=== PATIENT | male | born 1935 | race Caucasian/White ===

== ENCOUNTER → 2022-05-10 | Outpatient (CLI) | payer MEDICARE ==
--- NOTE | 2022-05-10 09:24 | P.PAINPG ---
PQRS Measure Charge Sheet Comment: HISTORY OF PRESENT ILLNESS: 87 yr old male with at side as a referral from Dr. Cheung sentence today with severe and chronic LBP secondary to spondylosis and facet arthropathy for evaluation. He states his lower back pain is currently at 6 out of 10 in intensity, dull, achy in the lower aspects of the lumbar spine and only provoked with lifting greater than 20 pounds. It is relieved with medications (Tylenol OTC, Voltaren gel), alternating ice and heat, physical therapy for which she is currently in, daily home stretching regimen, repositioning and rest. PMH: OA, HTN, Hyperlipidemia, Gout, GERD PSH: Denies SH: Negative x 3. and lives with spouse. FH: Non contributory All: See list Meds: See list REVIEW OF ORGAN SYSTEMS: CONSTITUTIONAL: No fevers or chills. No recent weight loss. HEENT: No visual acuity loss, eye pain, difficulties with hearing. No nosebleeds. No difficulty swallowing. RESPIRATORY: Denies any troubles with breathing or dyspnea on exertion. CARDIOVASCULAR: Denies any chest pain, palpitations, or recent heart attacks. GASTROINTESTINAL: Denies fatty food intolerance. Has change in bowel habits and gas bloat. GENITOURINARY: Denies any blood in urine. Has increased urinary frequency. NEUROLOGICAL: + numbness and tingling along the distal extremities. No seizure disorders or headaches. MUSCULOSKELETAL: + back pain SKIN: No skin cancer. No rash. PSYCHIATRIC: Denies current depression or suicidal thoughts. ENDOCRINE: Denies current thyroid disorders. Denies any blood sugar glucose intolerance. HEME/LYMPHATIC: Denies any lumps and bumps around the neck. History of deep venous thrombosis. ALLERGY/IMMUNOLOGY: No immunoglobulin therapy. No immune deficiencies. BREAST: Denies current breast lumps, pain or nipple discharge. Physical Examinations : Constitutional : Cooperative , not in acute distress . HEENT: Neck supple. No Lymphadenopathy. Normal thyroid size . Eyes no ptosis , no icterus, no photophobia . Hearing intact. Normal oropharynx. No Thrush. Respiratory : Chest clear to auscultations bilaterally. No wheezing. No rhonchi. Cardiovascular : Regular rate and rhythm , S1 / S2. No S3 . No S4. Gastrointestinal : Abdomen soft. No tenderness. Bowel sounds x 4. No organomegaly . Genitourinary : Deferred. Neurologic : Cranial nerve II to XII intact. No focal neurological deficits. Psychiatric : alert & oriented x 3. Matching mood & appropriate affect. Judgment & insight intact. Lymphatic No Lymphadenopathy. Musculoskeletal : Cervical Spine Motor strength in the deltoid and biceps: Normal right side. Normal Left side Motor strength biceps and the wrist extensors: Normal right side . Normal left side Motor strength in the triceps muscle: Normal right side. Normal left side Deep tendon reflexes: Normal at the biceps. Normal at Brachioradialis. Normal at triceps Cervical facet loading test: positive bilaterally Spurling test: positive bilaterally Neck distraction test: positive bilaterally Humberto sign: positive bilaterally Lumbar spine Motor strength lower extremities ,thigh and legs 5/5 Right side , 5/5 Left side Deep tendon reflexes : Normal Knee Jerk. Normal Ankle Jerk Vertebral body tenderness over L4, L5 Lumbar facet Loading Test: positive Right / positive Left Range of motion of the lumbar spine Flexion 30 degrees, extension 10 degrees Straight Leg Raise test: Left/ Right positive at degree Mikhail test: positive right / positive left. Severe tenderness over the Sacroiliac joint on the Right / Left sides Gaenslen test: positive bilaterally Seated flexion test: positive bilaterally. Sacral spine : Severe tenderness over the Sacroiliac joint: right side / left side Range of motion: Flexion of the lumbar spine <60 degrees Range of motion: Extension of the lumbar spine <20 degrees Gaenslen's Test positive Herb's Test positive Mikhail test: positive right side / left side Thigh Thrust Test Sacral Thrust Test Imaging: X ray of the lumbar spine from 04/15/22 reviewed Assessment/ Plan : Lumbar DDD Recommendation of MRI without contrast of the lumbar spine. Will follow up within 2-4 weeks for results and exploration of treatment options. Prescribing Naproxen 500mg BIDWM prn pain #60 w 1 refill. Risks, benefits of procedure discussed and patient verbalized understanding. Denies aspirin or anti- coagulant use or medical history of diabetes. All questions answered. I have spent greater than 50 minutes on patient care today. Dr Tinajero was available by phone for the evaluation of this patient. The time was used to review the medical records including relevant urine studies and Prescription history (MAPs), review of the available imaging, evaluation and examination of the patient, coordination of care with the medical staff and if applicable referring physicians, as well as creation of the medical record Controlled Substance Measures - Controlled Substance Measures Is patient prescribed a controlled substance at discharge?: No
[2022-05-10 10:25] VITALS: BP 147/71; PULSE 66; RESP 18; TEMP 98.4
== END ==
LOC: PNWHC3 08:32
PROVIDERS: ATTEND Specialist
DX: M51.36 Other intervertebral disc degeneration, lumbar region (principal); M48.061 Spinal stenosis, lumbar region without neurogenic claudication; M19.90 Unspecified osteoarthritis, unspecified site; E78.5 Hyperlipidemia, unspecified
CPT/HCPCS: 99211

== ENCOUNTER → 2022-05-16 | Outpatient (CLI) | payer MEDICARE ==
--- NOTE | 2022-05-16 11:44 | US ---
EXAMINATION TYPE: US axilla LT DATE OF EXAM: 05/16/2022 COMPARISON: NONE CLINICAL HISTORY: R22.2 LOCALIZED SWELLING, MASS AND LUMP, TRUNK. Visible palpable lump in left axill a. No recent covid vaccine. Area of concern at left axilla scanned. Multiple hypoechoic lesions seen. Largest measured, vascula r = 6.7 x 4.5 x 3.1 cm. Prominent hypervascular oval well-circumscribed hypoechoic solid masses in the left axilla. IMPRESSION: As above. Abnormal masses, suspected adenopathy. Neoplasm such as lymphoma is in the dif ferential. Further clinical workup and follow-up advised. Imaging guided biopsy can BE performed if n ecessary after clinical workup.
== END | disposition home or self-care (01) ==
LOC: RADUSWWP 11:12
PROVIDERS: ATTEND Internal Medicine Critical Care Medicine
DX: R22.2 Localized swelling, mass and lump, trunk (principal)

== ENCOUNTER → 2022-05-18 | Outpatient (CLI) | payer MEDICARE ==
[2022-05-18 09:53] LABS: Basophils % (A) 1 %; Eosinophils # (A) 0.1 k/uL (0-0.7); Eosinophils % (A) 2 %; HCT 42.7 % (39.0-53.0); HGB 14.1 gm/dL (13.0-17.5); Lymphocytes # (A) 1.1 k/uL (1.0-4.8); Lymphocytes % (A) 18 %; MCH 32.1 pg (25.0-35.0); MCHC 32.9 g/dL (31.0-37.0); MCV 97.7 fL (80.0-100.0); Mean Platelet Volume 6.5; Monocytes # (A) 0.3 k/uL (0-1.0); Monocytes % (A) 6 %; Neutrophils # (A) 4.3 k/uL (1.3-7.7); Neutrophils % (A) 72 %; Platelet Count 333 k/uL (150-450); RBC 4.37 m/uL (4.30-5.90); RDW 12.4 % (11.5-15.5)
[2022-05-18 10:01] LABS: ALT 15 U/L (4-49); AST 32 U/L (17-59); African American GFR (CKD) >90 (>60 ml/min/1.73 sqM); Albumin/Globulin Ratio 1.3; Alkaline Phosphatase 120 U/L (38-126); Anion Gap 6 mmol/L; Blood Urea Nitrogen 9 mg/dL (9-20); Calcium 9.1 mg/dL (8.4-10.2); Carbon Dioxide 28 mmol/L (22-30); Chloride 100 mmol/L (98-107); Creatine Kinase 161 U/L (55-170); Globulin 3.1 g/dL; Glucose 99 mg/dL (74-99); Non-African American GFR(CKD) 87 (>60 ml/min/1.73 sqM); Potassium 4.7 mmol/L (3.5-5.1); Sodium 134 mmol/L (137-145); Total Bilirubin 0.8 mg/dL (0.2-1.3); Total Protein 7.1 g/dL (6.3-8.2); Uric Acid 4.6 mg/dL (3.5-8.5)
[2022-05-18 11:05] LABS: Erythrocyte Sedimentation Rate 15 mm/hr (0-15)
--- NOTE | 2022-05-18 13:26 | CT ---
EXAMINATION TYPE: CT ChestAbdPelvis w con DATE OF EXAM: 05/18/2022 COMPARISON: None HISTORY: 87-year-old male R22.2, trunk mass, left side chest mass TECHNIQUE: Contiguous axial scanning of the chest, abdomen, pelvis performed with IV Contrast, patien t injected with 100 mL of Isovue 300. Delayed images through the kidneys were obtained. Coronal/sagit dagmar reconstructions performed. CT DLP: 1274 mGycm Automated exposure control for dose reduction was used. FINDINGS: CHEST: The heart is upper limits of normal in size without pericardial effusion. Three-vessel coronary arter y calcifications are present in remarkable for coronary artery disease. Mild aneurysm ascending aorta 4.0 cm. Conventional arch vessel anatomy. Mild aneurysm upper descendin g thoracic aorta 3.4 cm. Also, large caliber to the main right and left pulmonary arteries measuring up to 3.0 cm suggesting u nderlying pulmonary arterial hypertension. Prominent but nonenlarged 7 mm lower left paratracheal lymph node. There is christiano left axillary lymphadenopathy. Multiple nodes are present measuring up to 7.0 cm, refe r to coronal image 35. There is abnormal left infrahilar mass within the left lower lobe cutting off the basilar left lower lobe bronchus. Patchy nodularity and interstitial changes extend throughout the remainder of the basi lar left lower lobe with corresponding mild volume loss. This area measures approximately 4.8 cm. Mild to moderate centrilobular emphysema in the upper and midlungs. ABDOMEN: No focal liver lesion or biliary duct dilatation. Portal venous system is patent. Gallbladder, adrenal glands, right kidney, and spleen within normal limits. Small 3 mm nonobstructive left upper pole renal calculus. There is a 1.7 cm cystic area within the inferior pancreatic head that can be reassessed at a 6 month follow-up pancreas MRI. Mild atherosclerotic calcifications within the abdominal aorta. No dilated small bowel, free fluid, or free air. No mesenteric or retroperitoneal lymphadenopathy. Normal appendix. Moderate stool burden. Scattered clonic diverticulosis, greatest in the sigmoid colon. No pericolonic inflammatory change. PELVIS: Mild circumferential bladder wall thickening. Prostate gland measures 4.6 cm wide. There is some nodu lar areas of enhancement within the prostate gland that should be correlated with PSA values and poss ible prostate ultrasound. No abnormal fluid collection in the pelvis or pelvic lymphadenopathy. BONES: There is permeative lucency throughout the left ischium, extending to the posterior left acetabulum, along with abnormal soft tissue component along the anterior margin of the superior left ischial gianfranco s measuring up to 4.6 cm. There may be some early soft tissue extension into the posterior aspect of the left hip joint, refer to axial image 107. Moderate to advanced multilevel degenerative change throughout the lower thoracic and lumbar spine. IMPRESSION: 1. LEFT LOWER LOBE INFRAHILAR MASS/NEOPLASM MEASURING APPROXIMATELY 4.8 CM CUTTING OFF THE BASILAR LE FT LOWER LOBE BRONCHUS. SOME PATCHY AND NODULAR POST OBSTRUCTIVE BRONCHIOLITIS SUGGESTED. 2. CHRISTIANO LEFT AXILLARY LYMPHADENOPATHY MEASURING UP TO 7.0 CM AND A DESTRUCTIVE LESION OF THE LEFT IS CHIUM EXTENDING UP INTO THE POSTERIOR LEFT ACETABULUM. THERE IS EXTRAOSSEOUS SOFT TISSUE COMPONENT ME ASURING UP TO 4.6 CM IN POSSIBLE EARLY SOFT TISSUE EXTENSION INTO THE POSTERIOR LEFT HIP JOINT. 3. SOME NODULAR AREAS OF ENHANCEMENT WITHIN THE PROSTATE GLAND TO BE CORRELATED WITH PSA VALUES AND P OSSIBLE PROSTATE ULTRASOUND. 4. A 1.7 CM CYSTIC AREA INFERIOR PANCREATIC HEAD. REASSESS WITH A SIX-MONTH FOLLOW-UP PANCREAS MRI. 5. INCIDENTAL: COPD, PULMONARY ARTERIAL HYPERTENSION, 3 MM NONOBSTRUCTIVE LEFT RENAL CALCULUS, AND CO LONIC DIVERTICULOSIS, GREATEST IN THE SIGMOID COLON.
[2022-05-18 20:41] LABS: Chol/HDL Ratio 3.19 Ratio; LDL Cholesterol,Calculated 93.4 mg/dL (0.0-131.0); VLDL Calculation 16.46 mg/dL (5.00-40.00)
== END ==
LOC: RADCTMAIN 09:08
PROVIDERS: ATTEND Internal Medicine Critical Care Medicine
DX: N40.0 Benign prostatic hyperplasia without lower urinary tract symptoms (principal); K86.89 Other specified diseases of pancreas
CPT/HCPCS: 84439; 80061; 80053; 85652; 82550; 84443; 84550; 85025; 71260; 74177; 36415; G0103; Q9967 ×2

== ENCOUNTER 2022-05-22 07:24 | Day surgery (SDC) | payer MEDICARE ==
[2022-05-22 08:54] VITALS: RESP 18; TEMP 97.7
[2022-05-22 10:16] VITALS: BP 172/72; PULSE 53
--- NOTE | 2022-05-22 12:01 | US ---
EXAMINATION TYPE: US biopsy lymph node, US FNA first lesion DATE OF EXAM: 05/22/2022 HISTORY: Left axillary adenopathy FINDINGS: Maximal barrier technique was utilized. Hand hygiene achieved with soap and water and alco hol-based hand rub. The skin overlying a suitable path to the patient's left axillary adenopathy was localized with ultrasound and the overlying skin prepped and draped. Ultrasound was utilized with st erile technique. Lidocaine was used for local anesthesia. A single pass with a 25-gauge needle was made into the lesion, aspirated specimen submitted to cytology. A skin brandon was made with a scalpel. An 18-gauge needle was advanced under direct ultrasound guidance and core specimen obtained of the e nlarged node. 3 additional passes were made. Specimen submitted in formalin to Pathology. Following the procedure, hemostasis achieved and the patient is discharged in stable condition without complic ation. IMPRESSION:STATUS POST ULTRASOUND GUIDED CORE BIOPSY and fine-needle aspiration OF left axillary nathalie opathy. PATHOLOGY IS PENDING. THIS PROCEDURE IS PERFORMED BY THE UNDERSIGNED.
== END 2022-05-22 10:05 | disposition home or self-care (01) ==
LOC: RADPROMAIN 07:24
PROVIDERS: ATTEND Internal Medicine Critical Care Medicine
DX: C77.3 Secondary and unspecified malignant neoplasm of axilla and upper limb lymph nodes (principal); I10 Essential (primary) hypertension; J44.9 Chronic obstructive pulmonary disease, unspecified; E78.2 Mixed hyperlipidemia; M10.9 Gout, unspecified; M54.9 Dorsalgia, unspecified; Z87.891 Personal history of nicotine dependence; Z82.49 Family history of ischemic heart disease and other diseases of the circulatory system; Z79.82 Long term (current) use of aspirin; Z79.899 Other long term (current) drug therapy
CPT/HCPCS: 10005; 36415; 38505; 76942; 88173; 88305; 88341; 88342

== ENCOUNTER → 2022-05-25 | Outpatient (CLI) | payer MEDICARE ==
--- NOTE | 2022-05-25 08:20 | MR ---
EXAMINATION TYPE: MR brain wo/w con DATE OF EXAM: 05/25/2022 7:50 AM COMPARISON: NONE HISTORY: Lung ca, memory loss CONTRAST: Patient received 7 mL intravenous Gadavist gadolinium contrast. Multiplanar and multispin-echo imaging of the brain was performed . Pre and post contrast enhanced i mages are obtained. The ventricles, basal cisterns and sulci overlying the cerebral convexities are mildly enlarged. There is evidence of mild periventricular white matter ischemic demyelination. Remote deep white matter insults are also noted. There are approximately 4 infratentorial enhancing lesions noted the 2 largest are within the right c erebellum measuring up to 2.1 cm and up to 2.3 cm respectively. Central necrosis noted. There is a krueger pra tentorial lesion noted in the right frontal lobe just inferior to the right frontal horn which me asures 3.0 x 2.4 cm and demonstrates central necrosis as well. There is a moderate surrounding edema without significant midline shift at this time. 2 small high right frontal lesions are noted measurin g 6.5 mm and 5 mm respectively. No additional supratentorial lesions are evident at this time. Acute intracranial hemorrhage or extra-axial collection is not evident. The paranasal sinuses and mastoid air cells are well-aerated. IMPRESSION: 1. Supra and infratentorial metastatic lesions noted. 2.Age-related atrophic and chronic small vessel ischemic change. No acute intracranial process at th is time.
--- NOTE | 2022-05-25 08:53 | MR ---
EXAMINATION TYPE: MR lumbar spine wo con DATE OF EXAM: 05/25/2022 COMPARISON: CT chest abdomen and pelvis May 18, 2022 HISTORY: Low back pain into left buttocks, DDD TECHNIQUE: Multiplanar, multisequence imaging of the lumbar spine is performed without IV contrast. FINDINGS: Sagittal images of the lumbar spine show vertebral body height to appear satisfactory. Alig nment is straightened. Multilevel disc desiccation and moderate to advanced disc space narrowing. Th e conus medullaris is normal in position and signal ending inferior L1 level. Heterogeneous Modic typ e II endplate changes centered at L3-L4 level. Moderate multilevel anterior spurring. Axial images at T12-L1 level shows central disc extrusion with superior extension sagittal image 10 m ildly effaces the anterior thecal sac and mild facet arthropathy bilaterally. Patent bilateral neural foramina. Axial images at L1-L2 level show mild to moderate broad disc bulge mildly effaces the anterior thecal sac, patent bilateral neural foramina. Axial images at L2-L3 level show advanced broad disc bulge mildly effaces the anterior thecal sac isabel ng with mild facet arthropathy bilaterally, there is mild to moderate right greater than left bilater al inferior neural foraminal narrowing. Axial images at L3-L4 level shows moderate broad-based disc bulge mildly effaces the anterior thecal sac and causing mild bilateral neural foraminal narrowing. Axial images at L4-L5 level shows advanced broad disc bulge and [id number] facet arthropathy bi laterally. There is mild effacement anterior thecal sac and mild to moderate bilateral neural foramin al narrowing. Axial images at L5-S1 level shows moderate facet arthropathy bilaterally. There is broad-based disc b ulge with left paracentral disc protrusion component minimally effaces the anterior thecal sac. There is advanced bilateral neural foraminal narrowing with likely some encroachment on the exiting L5 ner ves right sagittal image 3 and left sagittal image 14. Paraspinal muscle bulk is preserved. IMPRESSION: Straightening of the lumbar spine with multilevel degenerative changes as detailed above
== END | disposition home or self-care (01) ==
LOC: RADMRIMAIN 06:47
PROVIDERS: ATTEND Nurse Practitioner Adult Health
DX: G31.9 Degenerative disease of nervous system, unspecified (principal); I67.82 Cerebral ischemia; C78.00 Secondary malignant neoplasm of unspecified lung
CPT/HCPCS: 70553; 72148; A9585